=== PATIENT | female | born 1960 | race Caucasian/White ===

== ENCOUNTER 2022-02-24 14:46 | Outpatient (CLI) | payer OTHER, SELFPAY ==
--- NOTE | 2022-02-24 15:00 | CRLHL7_ITS ---
For Patients: As a result of the Century Cures Act, medical imaging exams and procedure reports are released immediately into your electronic medical record. You may view this report before your referring provider. If you have questions, please contact your health care provider. BILATERAL SCREENING MAMMOGRAM WITH COMPUTER-AIDED DETECTION AND TOMOSYNTHESIS TECHNIQUE: CC and MLO views were obtained. These mammographic images have been obtained using full-field digital technique. These mammographic images were interpreted with the benefit of computer-aided detection. Breast Tomosynthesis was used in this interpretation. COMPARISON FILM: 02/23/21, 02/05/20, 10/17/18. FINDINGS: There are scattered areas of fibroglandular density IMPRESSION: There is no radiographic evidence for malignancy. ASSESSMENT: BI-RADS Category 1: Negative RECOMMENDATION: Routine screening mammogram in 1 year. A lay language report of this examination will be provided to the patient. Julio Hendrix M.D. Diagnostic Radiologist [email or web address] Transcribed: 3:53 pm DW/Dictated by: Julio Hendrix MD @ 02/25/2022 8:35:00 AM (Electronically Signed)
== END 2022-02-24 14:47 | disposition home or self-care (01) ==
LOC: MAMMO 14:48
PROVIDERS: PCP Internal Medicine; Visit Provider Internal Medicine
DX: Z12.31 Encounter for screening mammogram for malignant neoplasm of breast (principal)
CPT/HCPCS: 77063; 77067

== ENCOUNTER 2022-06-03 11:38 | Outpatient (CLI) | payer OTHER, SELFPAY ==
--- OUTSIDE RECORDS SUMMARY | 2022-06-03 11:45 | XMS_ITS | Clinical Summary ---
:1960 Author Organization [employer] [facility] [employer] [place] [address] Care Team Providers Name Role Phone Amie Riddle MD Primary Care Provider Allergies No known active allergies Medications Medication Sig Dispensed Refills Start Date End Date Status glucosamine sulfate Take 1 tablet by 0 03/05/2011 Active (GLUCOSAMINE) 500 mg mouth 3 times TabIndications: daily. Tension headache citalopram (CELEXA) 40 Take 1 tablet by 60 tablet 11 01/30/2013 Active mg tablet mouth every morning. ARIPiprazole (ABILIFY) Take 1 tablet by 0 01/30/2013 Active 5 mg tablet mouth once daily. triamcinolone Apply topically to 45 g 0 01/30/2013 Active (ARISTOCORT; KENALOG) affected area(s) 2 0.1 % times daily. creamIndications: Eczema Active Problems Problem Noted Date Tension headache 03/05/2011 Other acne 02/05/2011 Unspecified adjustment reaction 02/09/2010 Major depression in complete remission 05/31/2008 Allergic rhinitis, cause unspecified 10/26/2006 Resolved Problems Problem Noted Date Resolved Date Depressive disorder, not elsewhere classified 10/26/2006 05/31/2008 Immunizations Name Administration Dates Next Due Td (Age >=7 Years) 07/17/2003 Family History Medical History Relation Name Comments Cancer-colon Maternal Grandmother Cancer-breast Mother Diagnosed age 75 Relation Name Status Comments Maternal Grandmother Mother Social History Tobacco Use Types Packs/Day Years Used Date Never Smoker Smokeless Tobacco: Never Used Tobacco Cessation: Counseling Given: Yes Alcohol Use Standard Drinks/Week Comments Yes 0 (1 standard drink = 0.6 oz pure occasi onal glass of wine; once per alcohol) month Sex Assigned at Date Recorded Not on file Obstetrics History Para Term AB IAB SAB Ectopic Multiple Living Live Births 4 4 4 4 Date Outcome GA Total Labor/2nd/3rd Weight Sex Delivery Anes PTL Ana A 1 A5 Name Clin Labor Term Term Term Term Last Filed Vital Signs Vital Sign Reading Time Taken Comments Blood Pressure 97/60 01/30/2013 1:39 PM CDT Pulse 69 01/30/2013 1:39 PM CDT Temperature 36.7 ??C (98.1 ??F) 01/30/2013 1:39 PM CDT Respiratory Rate 14 07/01/2010 3:50 PM SOLAR PHOTOVOLTAIC INSTALLER Oxygen Saturation - - Inhaled Oxygen Concentration - - Weight 61.2 kg (135 lb) 01/30/2013 1:39 PM CDT Height 166.4 cm (5' 5.5) 01/30/2013 1:39 PM CDT Body Mass Index 22.12 01/30/2013 1:39 PM CDT Plan of Treatment Health Maintenance Due Date Last Done Comments COVID-19 vaccine series (#1) 04/02/1962 Tdap 1972 Depression screening for age 12+ 1973 BMI (ht and wt on same day) for 10/01/1979 age 18+ Hepatitis C screening for age 0310/01/1979 18-79 Zoster (shingles) series for age 0310/01/2011 50+ (1 of 2) Mammogram for age 45-75 02/14/2013 02/15/2012, 02/12/2011, 01/15/2010, Additional history exists Tetanus booster 07/17/2013 07/17/2003 Lipids for age 45-75 01/15/2015 01/15/2010, 05/31/2008, 05/31/2008 Pap test for age 21-65 08/30/2020 08/30/2017, 08/30/2017, 04/07/2015, Additional history exists Colonoscopy through age 75 10/01/2021 10/02/2011 (Completed outside of [facility]) Influenza for age 50-64 03/18/2022 Results Not on filefrom Last 3 Months Care Teams 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
--- NOTE | 2022-06-03 14:04 | W.ANESCHARGE ---
Anesthesia Charges Start Date/Time Anesthesia Start Date: 06/03/22 Anesthesia Start Time: 13:00 Stop Date/Time Anesthesia Stop Date: 06/03/22 Anesthesia Stop Time: 13:42 Summary Emergency: No
--- NOTE | 2022-06-03 14:57 | W.ANESCHARGE ---
Anesthesia Charges Start Date/Time Anesthesia Start Date: 06/03/22 Anesthesia Start Time: 13:00 Stop Date/Time Anesthesia Stop Date: 06/03/22 Anesthesia Stop Time: 13:42 Summary Emergency: No
== END 2022-06-03 11:39 | disposition home or self-care (01) ==
LOC: OP CLINIC 11:39
PROVIDERS: PCP Internal Medicine; Visit Provider Surgery
DX: Z12.11 Encounter for screening for malignant neoplasm of colon (principal); K63.5 Polyp of colon; K57.30 Diverticulosis of large intestine without perforation or abscess without bleeding; Z80.0 Family history of malignant neoplasm of digestive organs; Z86.010 Personal history of colon polyps
CPT/HCPCS: 00811; 45385; 88305; J2704

== ENCOUNTER 2024-01-03 10:16 | Outpatient (CLI) | payer BC, SELFPAY ==
--- OUTSIDE RECORDS SUMMARY | 2024-01-03 10:20 | XMS_ITS | Clinical Summary ---
Author Organization [employer] [facility] Address [place], [place] [address] Care Team Providers Care Brass Molder Name Role Phone Amie Riddle MD Primary Care Provider [phone]- [phone] Allergies No known active allergies Medications Medication Sig Dispensed Refills Start Date End Date Status glucosamine sulfate (GLUCOSAMINE) 500 mg TabIndications:Tensi on headache Take 1 tablet by mouth 3 times daily. 0 03/05/2011 Active citalopram (CELEXA) 40 mg tablet Take 1 tablet by mouth every morning. 60 tablet 11 01/30/2013 Active ARIPiprazole (ABILIFY) 5 mg tablet Take 1 tablet by mouth once daily. 0 01/30/2013 Active triamcinolone (ARISTOCORT; KENALOG) 0.1 % creamIndications:Ecz susy Apply topically to affected area(s) 2 times daily. 45 g 0 01/30/2013 Active Active Problems Problem Noted Date Diagnosed Date Tension headache 03/05/2011 Other acne 02/05/2011 Unspecified adjustment reaction 02/09/2010 Major depression in complete remission 8 Allergic rhinitis, cause unspecified 10/26/2006 Resolved Problems Problem Noted Date Diagnosed Date Resolved Date Depressive disorder, not elsewhere classified 10/27/19 07 05/31/2008 Immunizations Name Administration Dates Next Due Td (Age >=7 Years) 07/17/2003 Family History Medical History Relation Name Comments Cancer-colon Maternal Grandmother Cancer-breast Mother Diagnosed age 75 Relation Name Status Comments Maternal Grandmother Mother Social History Tobacco Use Types Packs/Day Years Used Date Smoking Tobacco: Never Smokeless Tobacco: Never Tobacco Cessation:Counseling Given: Yes Alcohol Use Standard Drinks/Week Comments Yes 0 (1 standard drink = 0.6 oz pure alcohol) occasional glass of wine; once per month Sex and Gender Information Value Date Recorded Sex Assigned at Not on file Gender Identity Not on file Sexual Orientation Not on file Obstetrics History Para Term AB IAB SAB Ectopic Multiple Livin g Live Births 4 4 4 4 Date Outcome GA Total Labor Labor/2nd/3rd Weight Sex Type Anes PTL Ana A1 A5 Name Clin Term Term Term Term Last Filed Vital Signs Vital Sign Reading Time Taken Comments Blood Pressure 97/60 01/30/2013 1:39 PM CDT Pulse 69 01/30/2013 1:39 PM CDT Temperature 36.7 ??C (98.1 ??F) 01/30/2013 1:39 PM CD T Respiratory Rate 14 07/01/2010 3:50 PM SEED PELLETER Oxygen Saturation - - Inhaled Oxygen Concentration - - Weight 61.2 kg (135 lb) 01/30/2013 1:39 PM CDT Height 166.4 cm (5' 5.5) 01/30/2013 1:39 PM CDT Body Mass Index 22.12 01/30/2013 1:39 PM CDT Plan of Treatment Health Maintenance Due Date Last Done Comments Tdap 1972 Depression screening for age 12+ 1973 HIV for age 15-65 1976 BMI (ht and wt on same day) for age 18+ 10/01/1979 Hepatitis C screening for age 18-79 10/01/1979 Zoster (shingles) series for age 50+ (1 of 2) 10/01/2011 Mammogram for age 45-75 02/14/2013 02/15/20 12, 02/12/2011, 01/15/2010, Additional history exists Tetanus booster 07/17/2013 07/17/2003 Lipids for age 45-75 01/15/2015 01/15/2010, 05/31/2008, 05/31/2008 Pap test for age 21-65 08/30/2020 , 08/30/2017, 04/07/2015, Additional history exists Colonoscopy through age 75 10/01/202110/01 ([facility]) COVID-19 vaccine series (2022-24 season) 2023 Influenza for age 50-64 03/18/2024 Pneumococcal series for age 6-64 Aged Out No longer eligible based on patient's age to complete this topic Procedures Procedure Name Priority Date/Time Associated Diagnosis Comments CORRESPONDENCE COORDINATOR THIN PREP PAP SCREEN IMAGED Routine 08/30/2017 1:30 PM SEED PELLETER SCAN-MAMMOGRAPHY REPORT 02/15/2012 12:00 PM CDT LIPID PANEL Routine 01/15/2010 7:52 AM CDT Lipid screening from Last 3 Months or Most Recently Relevant to Health Maintenance Results * CORRESPONDENCE COORDINATOR THIN PREP PAP SCREEN IMAGED (08/30/2017 1:30 PM SEED PELLETER) Case Report Gynecologic Cytology Report ? Case: [id number] ? Authorizing Provider: ??Amie Riddle MD ?Collected: ? 08/30/2017 1330 ? First Screen: ?Tabitha Mojica ?Received: ?08/31/2017 1355 ? Specimen: ?CORRESPONDENCE COORDINATOR ThinPrep Vial Screening, Cervical/Vaginal ? 09/07/2017 8:34 AM [facility] [email or web address] LABORATORY-C ENTRAL LABORATORY INTERPRETATION/ RESULT NEGATIVE FOR INTRAEPITHELIAL LESION OR MALIGNANCY (NIL) (none) 09/07/2017 8:34 AM [facility] [employer]-C ENTRAL LABORATORY IMEN ADEQUACY Satisfactory for evaluation Endocervical cells cannot be evaluated due to severe atrophy 09/07/2017 8:34 AM SEED PELLETER [facility]OR[facility]-C ENTRAL LABORATORY HPV REQUEST HPV and PAP 09/07/2017 8:34 AM [facility] LABORATORY Date of LMP 09/07/2017 8:34 AM [facility] Comment:May 2012 Last Pap Date 04/07/2015 09/07/2017 8:34 AM [facility] Last Pap Result NIL 8 8:34 AM [facility] Menstrual Status 09/07/2017 8:34 AM [facility] Comment:Menopause Additional Information atophic cervix 09/07/2017 8:34 AM [facility] Automated Review Successful 09/07/2017 8:34 AM [facility] Comment:Specimen processed s uccessfully by automated automotive tire tester device, Enterra FeedPrep Imaging System, [employer] ANCILLARY TESTING CORRESPONDENCE COORDINATOR HPV Ordered, Please see separate report 09/07/2017 8:34 AM [facility] Note The pap test is a screening technique, not a diagnostic procedure. ??It is used primarily to screen for squamous cancers and precursor lesions. ??Published studies have shown that it is subject to both false negative and false positive results. ??The pap test should not be used as the sole means to diagnose or exclude pre-malignant and malignant lesions. Interpreted at [facility] (Central Lab, [facility], [facility], [facility], [facility], [facility], [facility]) 09/07/2017 8:34 AM [facility] Other (Cervical/Vagina l) 08/30/2017 1:30 PM SE[facility] PELLETER 08/31/2017 1:55 PM [facility] Amie Riddle MD PATHOLOGY/CYTOLOGY [facility] [address] [place] [address], * SCAN-MAMMOGRAPHY REPORT (02/15/2012 12:00 PM CDT) Anatomical Region Laterality Modality Other Narrative Transcriptions Scanner - 02/15/2012 12:00 PM CDT Scanner OTHER * LIPID (01/15/2010 7:52 AM CDT) CHOLESTEROL,TOTAL 142 110 - 199 mg/dL [facility] TRIGLYCERIDES 33 <150 mg/dL [facility] HDL CHOLESTEROL 70 >40 mg/dL [facility] CHOL/HDL RATIO 2.03 <4.51 [facility] LDL CHOLESTEROL 65 <131 mg/dL [facility] PATIENT STATUS Fasting [facility] Blood specimen (specimen) BLOOD SPECIMEN / Unknown 01/15/2010 7:52 AM CDT 01/15/2010 7:48 AM CDT Kelly Kraft MANAGER CORPORATE CHEMISTRY [facility] [address] [place] [address] from Last 3 Months or Most Recently Relevant to Health Maintenance Care Teams Brass Molder Relationship Specialty Start Date End Date Amie Riddle MD PCP - General Internal Medicine 01/30/13
== END 2024-01-03 10:17 | disposition home or self-care (01) ==
LOC: NFLDREF 10:18
PROVIDERS: PCP Internal Medicine; Visit Provider Internal Medicine
DX: M25.551 Pain in right hip (principal)
CPT/HCPCS: 86140

== ENCOUNTER 2024-02-16 13:06 | Outpatient (CLI) | payer BC, SELFPAY ==
--- OUTSIDE RECORDS SUMMARY | 2024-02-16 14:29 | XMS_ITS | Clinical Summary ---
Author Organization [employer] [facility] [employer] Address [place], [place] [address] Care Team Providers Care Jewelry Engraver Name Role Phone Amie Riddle MD Primary Care Provider +1- [phone] Allergies No known active allergies Medications Medication [...] T Respiratory Rate 14 07/01/2010 3:50 PM CITY ENGINEER Oxygen Saturation - - Inhaled Oxygen Concentration [...] through age 75 10/01/202110/01 ([facility] COVID-19 vaccine series (2022-24 season) 2023 Influenza for age 50-64 03/18/2024 Pneumococcal series for age 6-64 Aged Out No longer eligible based on patient's age to complete this topic Procedures Procedure Name Priority Date/Time Associated Diagnosis Comments MANAGER PRICING THIN PREP PAP SCREEN IMAGED Routine 08/30/2017 1:30 PM CITY ENGINEER SCAN-MAMMOGRAPHY REPORT 02/15/2012 12:00 PM CDT LIPID PANEL Routine 01/15/2010 7:52 AM CDT Lipid screening from Last 3 Months or Most Recently Relevant to Health Maintenance Results * MANAGER PRICING THIN PREP PAP SCREEN IMAGED (08/30/2017 1:30 PM CITY ENGINEER) Case Report Gynecologic Cytology Report ? Case: [id number] ? Authorizing Provider: ??Amie Riddle MD ?Collected: ? 08/30/2017 1330 ? First Screen: ?Tabitha Mojica ?Received: ?08/31/2017 1355 ? Specimen: ?MANAGER PRICING ThinPrep Vial Screening, Cervical/Vaginal ? 09/07/2017 8:34 AM [facility] [employer] LABORATORY-C ENTRAL LABORATORY INTERPRETATION/ RESULT NEGATIVE FOR INTRAEPITHELIAL LESION OR MALIGNANCY (NIL) (none) 09/07/2017 8:34 AM [facility] [employer]-C ENTRAL LABORATORY IMEN ADEQUACY Satisfactory for evaluation Endocervical cells cannot be evaluated due to severe atrophy 09/07/2017 8:34 AM CITY ENGINEER [facility] LABORATORY-C ENTRAL LABORATORY HPV REQUEST HPV and PAP 09/07/2017 8:34 AM [facility] LABORATORY Date of LMP 09/07/2017 8:34 AM [facility] Comment:May 2012 Last Pap Date 04/07/2015 09/07/2017 8:34 AM [facility] Last Pap Result NIL 8 8:34 AM [facility] Menstrual Status 09/07/2017 8:34 AM [facility] Comment:Menopause Additional Information atophic cervix 09/07/2017 8:34 AM [facility] Automated Review Successful 09/07/2017 8:34 AM [facility] Comment:Specimen processed s uccessfully by automated supervisor anodizing device, [employer] Hotel[employer] Imaging System, [employer] ANCILLARY TESTING MANAGER PRICING HPV Ordered, Please see separate report 09/07/2017 8:34 AM [facility] Note The pap test is a screening technique, not a diagnostic procedure. ??It is used primarily to screen for squamous cancers and precursor lesions. ??Published studies have shown that it is subject to both false negative and false positive results. ??The pap test should not be used as the sole means to diagnose or exclude pre-malignant and malignant lesions. Interpreted at [facility] (Central Lab, [facility], [facility], [facility], [facility], [facility]Note 2], [facility]) 09/07/2017 8:34 AM [facility] Other (Cervical/Vagina l) 08/30/2017 1:30 PM CITY ENGINEER 08/31/2017 1:55 PM CITY ENGINEER Amie Riddle MD PATHOLOGY/CYTOLOGY [facility] [address] [place] [address], * SCAN-MAMMOGRAPHY REPORT (02/15/2012 12:00 PM CDT) Anatomical Region Laterality Modality Other Narrative Transcriptions Scanner - 02/15/2012 12:00 PM CDT Scanner OTHER * LIPID (01/15/2010 7:52 AM CDT) CHOLESTEROL,TOTAL 142 110 - 199 mg/dL [facility] TRIGLYCERIDES 33 <150 mg/dL [facility] HDL CHOLESTEROL 70 >40 mg/dL [facility] CHOL/HDL RATIO 2.[address] [facility] LDL CHOLESTEROL 65 <131 mg/dL [facility] PATIENT STATUS Fasting [facility] Blood specimen (specimen) BLOOD SPECIMEN / Unknown 01/15/2010 7:52 AM CDT 01/15/2010 7:48 AM CDT Kelly Kraft COMPENSATION DIRECTOR CHEMISTRY [facility] [address] [place] [address] from Last 3 Months or Most Recently Relevant to Health Maintenance Care Teams Jewelry Engraver Relationship Specialty Start Date End Date Amie Riddle MD PCP - General Internal Medicine 01/30/13
== END 2024-02-16 13:07 | disposition home or self-care (01) ==
LOC: NFLDREF 14:27
PROVIDERS: PCP Internal Medicine; Visit Provider Internal Medicine
DX: Z01.818 Encounter for other preprocedural examination (principal)
CPT/HCPCS: 80053

== ENCOUNTER 2024-02-24 13:27 | Inpatient (IN) | payer BC, SELFPAY ==
[2024-02-23] VITALS (23 sets, daily range): BP systolic 87–124; BP diastolic 42–80; PULSE 46–97; RESP 12–18; TEMP 35.4–36.9; O2SAT 96–100; BMI 23.6
--- OUTSIDE RECORDS SUMMARY | 2024-02-23 10:33 | XMS_ITS | Clinical Summary ---
Author Organization [facility] Address [place], [place] [address] Care Team Providers Care Flower Stripper Name Role Phone Amie Riddle MD Primary Care Provider [phone] Allergies No known active allergies Medications Medication [...] T Respiratory Rate 14 07/01/2010 3:50 PM MANAGEMENT ARCHITECT Oxygen Saturation - - Inhaled Oxygen Concentration [...] through age 75 10/01/202110/01 (Completed outside of [facility]) COVID-19 vaccine series (2022-24 season) 2023 Influenza for age 50-64 03/18/2024 Pneumococcal series for age 6-64 Aged Out No longer eligible based on patient's age to complete this topic Procedures Procedure Name Priority Date/Time Associated Diagnosis Comments COLOR PASTE MIXER THIN PREP PAP SCREEN IMAGED Routine 08/30/2017 1:30 PM MANAGEMENT ARCHITECT SCAN-MAMMOGRAPHY REPORT 02/15/2012 12:00 PM CDT LIPID PANEL Routine 01/15/2010 7:52 AM CDT Lipid screening from Last 3 Months or Most Recently Relevant to Health Maintenance Results * COLOR PASTE MIXER THIN PREP PAP SCREEN IMAGED (08/30/2017 1:30 PM MANAGEMENT ARCHITECT) Case Report Gynecologic Cytology Report ? Case: [id number] ? Authorizing Provider: ??Amie Riddle MD ?Collected: ? 08/30/2017 1330 ? First Screen: ?Tabitha Mojica ?Received: ?08/31/2017 1355 ? Specimen: ?COLOR PASTE MIXER ThinPrep Vial Screening, Cervical/Vaginal ? 09/07/2017 8:34 AM [facility]-C ENTRAL LABORATORY INTERPRETATION/ RESULT NEGATIVE FOR INTRAEPITHELIAL LESION OR MALIGNANCY (NIL) (none) 09/07/2017 8:34 AM [facility] [employer]-C ENTRAL LABORATORY IMEN ADEQUACY Satisfactory for evaluation Endocervical cells cannot be evaluated due to severe atrophy 09/07/2017 8:34 AM MANAGEMENT ARCHITECT [facility]-C ENTRAL LABORATORY HPV REQUEST HPV and PAP 09/07/2017 8:34 AM [facility] ENTRIL LAB[facility] Date of LMP 09/07/2017 8:34 AM [facility] Comment:May 2012 Last Pap Date 04/07/2015 09/07/2017 8:34 AM [facility] Last Pap Result NIL 8 8:34 AM [facility] Menstrual Status 09/07/2017 8:34 AM [facility] Comment:Menopause Additional Information atophic cervix 09/07/2017 8:34 AM [facility] Automated Review Successful 09/07/2017 8:34 AM [facility] Comment:Specimen processed s uccessfully by automated spun paste machine operator device, DeepFlexPrep Imaging System, [employer] ANCILLARY TESTING COLOR PASTE MIXER HPV Ordered, Please see separate report 09/07/2017 8:34 AM [facility] Note The pap test is a screening technique, not a diagnostic procedure. ??It is used primarily to screen for squamous cancers and precursor lesions. ??Published studies have shown that it is subject to both false negative and false positive results. ??The pap test should not be used as the sole means to diagnose or exclude pre-malignant and malignant lesions. Interpreted at [facility] ([facility], [facility], [facility], [facility], [facility], [facility], [facility]) 09/07/2017 8:34 AM [facility] Other (Cervical/Vagina l) 08/30/2017 1:30 PM MANAGEMENT ARCHITECT 08/31/2017 1:55 PM MANAGEMENT ARCHITECT Amie Riddle MD PATHOLOGY/CYTOLOGY [facility] [address] [place] [address], * SCAN-MAMMOGRAPHY REPORT (02/15/2012 12:00 PM CDT) Anatomical Region Laterality Modality Other Narrative Transcriptions Scanner - 02/15/2012 12:00 PM CDT Scanner OTHER * LIPID (01/15/2010 7:52 AM CDT) CHOLESTEROL,TOTAL 142 110 - 199 mg/dL [facility] TRIGLYCERIDES 33 <150 mg/dL [facility] HDL CHOLESTEROL 70 >40 mg/dL [facility] CHOL/HDL RATIO 2.03 <4.51 [facility] LDL CHOLESTEROL 65 <131 mg/dL [facility] PATIENT STATUS Fasting [facility] Blood specimen (specimen) BLOOD SPECIMEN / Unknown 01/15/2010 7:52 AM CDT 01/15/2010 7:48 AM CDT Kelly Kraft ELECTRON BEAM OPERATOR CHEMISTRY [facility] [address] [place] [address] from Last 3 Months or Most Recently Relevant to Health Maintenance Care Teams Flower Stripper Relationship Specialty Start Date End Date Amie Riddle MD PCP - General Internal Medicine 01/30/13
[2024-02-23] MEDS: OXYCODONE (CR) 10 MG TAB.ER.12H PO (11:29)
[2024-02-23] MEDS: CELECOXIB 200 MG CAPSULE PO (11:29)
[2024-02-23] MEDS: ACETAMINOPHEN 500 MG TABLET 1000 MG PO ×3 (11:29→23:37)
[2024-02-23] MEDS: LACTATED RINGERS 1000 ML 1,000 ML 100 ML IV ×2 (11:35→13:46)
[2024-02-23] MEDS: SODIUM CHLORIDE 0.9 % (FLUSH) 10 ML SYRINGE IVF (11:35)
--- NOTE | 2024-02-23 11:44 | SUR.PREOP ---
TIME?OUT:?1144 PT/RN/MDA?VERIFICATION?OF?SURGICAL?SITE,?PROCEDURE,?AND?CONSENT OBTAINED?PRIOR?TO?INVASIVE?PROCEDURE.
--- NOTE | 2024-02-23 11:45 | CRLHL7_ITS ---
For Patients: As a result of the Cures Act, medical imaging exams and procedure reports are released immediately into your electronic medical record. You may view this report before your referring provider. If you have questions, please contact your health care provider. Indication: Hip replacement surgery Technique: AP hip fluoroscopic images. Fluoroscopy time 69.4 seconds. Findings/Impression: Hardware from a right total hip arthroplasty is in satisfactory position. Dictated by Julio Hendrix MD @ 02/24/2024 5:36:31 AM (Electronically Signed)
--- NOTE | 2024-02-23 11:56 | P.NB_ITS ---
Nerve Block Nerve Block Time Seen by Provider: 11:50 Date Seen: 02/23/24 Type of block requested by surgeon for post-operative analgesia: BETTE/LFCN Side: right Time out performed: Yes Verification of patient name: Yes Verification of date of : Yes Site marking: site marked Name of person performing procedure: Guanaco Continuous monitoring Was continuous monitoring of O2 sat, B/P, phototypesetting equipment monitor, recorded every 15 minutes?: Yes Procedure Checklist: sterile prep, needles and gloves Ultrasound guided. Images saved: Yes Medications given in 5ml increments after negative aspiration: Ropivicaine %: 0.5 mL: 30 Needle gauge: 20 Decadron (mg): 10 Precedex (mcg): 25 Patient tolerated procedure well: Yes Additional comments: Needle noted below psoas tendon needle noted adjacent to LFCN Block Charges Block Charge (with Pro Fee): Other Periph Nerve Block Use of Ultrasound Machine for Block: Yes- US Guidance/pain block
--- NOTE | 2024-02-23 11:56 | W.ANESCHARGE ---
Anesthesia Charges Start Date/Time Anesthesia Start Date: 02/23/24 Anesthesia Start Time: 11:53 Stop Date/Time Anesthesia Stop Date: 02/23/24 Anesthesia Stop Time: 14:10
[2024-02-23] MEDS: CEFAZOLIN 2 GM INJ IVP (12:11)
[2024-02-23] MEDS: TRANEXAMIC ACID 100 MG/ML INJ 1000 MG IV (12:16)
--- NOTE | 2024-02-23 13:34 | CRLHL7_ITS ---
For Patients: As a result of the Century Cures Act, medical imaging exams and procedure reports are released immediately into your electronic medical record. You may view this report before your referring provider. If you have questions, please contact your health care provider. Indication: Postop Technique: AP hip centered pelvis and lateral view right Findings/Impression: Hardware from a right total hip arthroplasty is in satisfactory position. Bone alignment is normal. No sign of acute fracture. Postop changes are within normal limits. Bridging osteophyte formation across the superior symphysis pubis. Dictated by Julio Hendrix MD @ 02/24/2024 5:43:53 AM (Electronically Signed)
--- NOTE | 2024-02-23 13:36 | P.ORPRC_ITS ---
Procedure Note Date of procedure: 02/23/24 Procedure: PREOPERATIVE DIAGNOSIS: Right hip osteoarthritis POSTOPERATIVE DIAGNOSIS: Right hip osteoarthritis NAME OF OPERATION: Right total hip arthroplasty SURGEON: Robe Polo MD DOUBLE END TENON OPERATOR: Brandie Johnson PA-C, CHUCHO Smith IMPLANTS: 1. J[employer]J Tionesta # 52 sector ingrowth cup 2. 36 x 52 +4 neutral polyethylene 3. Actis # 8 standard collared ingrowth stem 4. 36 + 1.5 ceramic femoral head ANESTHESIA: Spinal ESTIMATED BLOOD LOSS: 700 cc COMPLICATIONS: None SPECIMENS: None DRAINS: None PREOPERATIVE ANTIBIOTICS: Ancef 2 grams INDICATIONS: The patient is a 63-year-old with a longstanding history of s evere, unrelenting right hip pain secondary to end-stage right hip osteoarthritis. Despite appropriate nonoperative management, including activity modification, use of an assist device, anti-inflammatories, [id number] pain medication, physical therapy and injections, they continue to have pain and disability. Operative intervention was offered. The risks, benefits and expected outcomes were discussed in detail. These included but were not limited to: Infection, bleeding, injury to blood vessel or nerve, venous thromboembolism. All questions were answered to their satisfaction. Use of an production administrative assistant was necessary throughout the case for patient positioning and safety, soft tissue retraction and closure. PROCEDURE: Spinal anesthesia was administered. The patient was placed supine on the [place] table. The production administrative assistant made sure the patient was properly positioned. The right hip was prepped and draped in the usual sterile fashion. The image intensifier was brought in for a perfect AP pelvis and a perfect double tear drop AP view of each hip which were used for intraoperative templating with our fluoroscopic guide. An oblique incision was made 3 cm distal and 3 cm lateral to the anterior superior iliac spine. The production administrative assistant retracted the soft tissues to protect them. Subcutaneous dissection was taken with electrocautery to the superficial fascia. The fascia was divided in line with the incision. Blunt dissection was carried medially to the tensor fascia tu and sartorius interval. Deep dissection was carried with electrocautery. The circumflex vessels were cauterized and divided. The capsule was exposed and then divided in a T- fashion, tagged with #1 Ethibond sutures. Retractors were placed in the joint, held by the production administrative assistant. The corkscrew was placed in the femoral head. The neck cut was made in the subcapital region. We made a second neck cut more distal. The napkin ring of bone was removed. The femoral head was removed intact. Acetabular retractors were placed, held by the production administrative assistant. The labrum was sharply debrided. The capsule was released. The 43 mm reamer was used to the true medial wall. We then enlarged in 2 mm increments using the image intensifier for our reamer placement. We impacted the cup which had excellent purchase. We placed the polyethylene. Attention was then turned to the proximal femur. The limb was placed in 140 degrees of external rotation, maximum extension and adduction. A significant amount of time was spent releasing the capsule to allow us to deliver the femur into the wound and complete the femoral side safely. Retractors were held by the production administrative assistant throughout the femoral preparation. The box hinge and lock attacher and canal finder were used. Broaches were used to a stable size. The calcar reamer was used. Trial components were placed. The hip was reduced and was found to be stable with appropriate soft tissue tension. Length and offset had been nicely restored using the image intensifier and our fluoroscopic guide. Trial components were removed. The stem was impacted. We placed the femoral head. Again, the hip was reduced and was found to be stable with appropriate soft tissue tension. Length and offset had been nicely restored. The production administrative assistant did a three minute dilute Betadine solution soak. The production administrative assistant irrigated the wound with 3 liters of normal saline via pulse lavage. The production administrative assistant repaired the anterior capsule with a #1 Vicryl and our previously placed Ethibond sutures. The production administrative assistant closed the fascia over the tensor fascia tu with a #1 PDO Stratafix, subcutaneous tissues with 2-0 Vicryl, skin with a running 3-0 Stratafix and glue. A dry dressing was applied by the production administrative assistant. Sponge and needle counts were correct x 2. The patient tolerated the procedure well; there were no apparent complications. They were awakened and extubated in the operating room, sent to the Post-Anesthesia Care Unit in satisfactory condition. PLAN: 1. The patient will be mobilized with physical therapy, weight-bearing as tolerates 2. Xarelto x 5 days then aspirin x 30 days will be used for DVT prophylaxis 3. The patient will be discharged once medically appropriate
--- NOTE | 2024-02-23 14:13 | W.ANESCHARGE ---
Anesthesia Charges Start Date/Time Anesthesia Start Date: 02/23/24 Anesthesia Start Time: 11:53 Stop Date/Time Anesthesia Stop Date: 02/23/24 Anesthesia Stop Time: 14:10
[2024-02-23] MEDS: ONDANSETRON 2 MG/ML inj 4 MG IVP ×3 (14:32→20:57)
--- NOTE | 2024-02-23 14:34 | SUR.PHASEI ---
xray here for ap/lat right hip
[2024-02-23] MEDS: HYDROmorphone 0.5 mg/0.5 ml inj IVP ×2 (15:14→16:50)
--- NOTE | 2024-02-23 15:36 | PM.IMCN1 ---
Date of Consult Patient: [facility] Patient Consult date: 02/23/24 Requesting Physician: Orthopedics Primary Care Provider: Amie Riddle MD Consult Narrative Narrative: Dulce Randle is a 63 year old female admitted for right total hip arthroplasty. Procedure was performed by Dr. Polo. There were no operative complications. Estimated blood loss 700 mL. He has requested medical consultation for management of perioperative medical problems. Patient reports she is doing well at this time. She is a little bit of nausea and some hip pain. Her spinal anesthesia is just beginning to wear off now. Preoperatively she did well. No significant perioperative concerns identified during her preoperative physical. She has had no recent illness or injury. Review of Systems Narrative: No recent illness or injury. No current medical concerns. [facility] Medical History History of major depression ?Z86.59 - Personal history of other mental and behavioral disorders (ICD-10) Surgical History (Updated 02/23/24 @ 15:42 by Usman Velazquez MD) History of total right hip arthroplasty ?Z96.641 - Presence of right artificial hip joint (ICD-10) History of menorrhagia (02/10/12) ?Z87.42 - Personal history of other diseases of the female genital tract (ICD-10) History of colonoscopy ?Z98.890 - Other specified postprocedural states (ICD-10) Family History Other Colon cancer Social History (Updated 02/23/24 @ 15:41 by Usman Velazquez MD) Narrative: She lives with her . She has 2 steps to get into her house and then lives on 1 level. She does not smoke. She occasionally drinks alcohol. What is your current living situation?: I presently have a place to live Problems where you live: no known problems In the past 12 months, utilities in danger of being shut off: no In past 12 months, lack of transportation kept you from medical appts, meetings, work, or getting things needed for daily living: no In the past 12 mos, have been you worried that your food would run out before you had money to buy more?: never true In the past 12 mos, the food you bought just didn't last and you didn't have money to buy more?: never true Smoking Status: Never smoker How often do you have a drink containing alcohol: monthly or less AUDIT-C Alcohol total score: 1 Non-prescribed substance use: denies use Caffeine: Yes How often does anyone, including family, friends and others, physically hurt you: never How often does anyone, including family, friends and others, insult or talk down to you: never How often does anyone, including family, friends and others, threaten you with harm: never How often does anyone, including family, friends and others, scream or curse at you: never Little interest or pleasure in doing things: not at all Feeling down, depressed, or hopeless: not at all Meds Home Medications and Allergies Home Medications ?Medication ?Instructions ?Recorded ?Confirmed ?Type cholecalciferol (vitamin D3) 25 25 mcg PO DAILY 01/03/24 02/23/24 History mcg (1,000 unit) capsule coenzyme Q10 300 mg capsule (Co 300 mg PO DAILY 01/03/24 02/23/24 History Q-10) omega-3 650 mg-dha 400 mg-epa 200 1 cap PO DAILY 01/03/24 02/23/24 History mg-fish oil-vit D3 300 unit capsule magnesium oxide 300 mg PO DAILY 01/12/24 02/23/24 History Allergies Allergy/AdvReac Type Severity Reaction Status Date / Time No Known Drug Allergies Allergy Verified 02/16/24 14:04 Exam Narrative: Exam Narrative: She is alert and appears in no distress. Oropharynx is normal. Neck is supple without mass or adenopathy. Respirations are clear to auscultation. Cardiovascular: S1, S2, regular rate and rhythm. No murmur gallop or rub. Abdomen: Bowel sounds active. Abdomen is soft without tenderness or mass. Right Hip without marked swelling. No erythema or drainage on the dressing. She has diminished sensation in her feet. Normal motion in her feet and ankles. Intact pedal pulses. No edema Const: Vital Signs, click to edit/add: Vital Signs - 24 hr 02/23/24 11:20 02/23/24 11:46 02/23/24 11:50 Temperature 98.4 F Pulse Rate 73 67 65 Respiratory Rate 16 16 14 Blood Pressure 124/79 118/73 116/71 Pulse Oximetry 99 98 96 Oxygen Delivery Me thod Room Air Nasal Cannula Nasal Cannula Oxygen Flow Rate 3 3 02/23/24 13:35 02/23/24 14:10 02/23/24 14:15 Temperature 97.4 F L Pulse Rate 58 L 46 L 52 L Respiratory Rate 16 12 12 Blood Pressure 87/59 L 88/47 L 92/58 L Pulse Oximetry 97 96 96 Oxygen Delivery Me thod Room Air Room Air Room Air Oxygen Flow Rate 02/23/24 14:20 02/23/24 14:25 02/23/24 14:30 Temperature Pulse Rate 55 L 58 L 53 L Respiratory Rate 12 16 16 Blood Pressure 92/58 L 90/61 94/67 Pulse Oximetry 96 96 96 Oxygen Delivery Me thod Room Air Room Air Room Air Oxygen Flow Rate 02/23/24 14:40 02/23/24 14:45 Temperature Pulse Rate 60 55 L Respiratory Rate 16 16 Blood Pressure 94/64 90/58 L Pulse Oximetry 97 97 Oxygen Delivery Me thod Room Air Room Air Oxygen Flow Rate Documenting provider has reviewed patient's vital signs: yes Assessment and Plan Assessment and plan (1) History of total right hip arthroplasty: Problem comment: 02/23/2024. Dr. Polo. No complications. Status: Acute Plan Patient is admitted to the hospital for postoperative care for her hip arthroplasty. Management including pain control, management of nausea and therapy. Anticipate discharge to home with her tomorrow if no complications. Total Time Spent Total Time Spent: 30 minutes
[2024-02-23] MEDS: hydrOXYzine pamoate 25 MG CAPSULE PO (18:17)
[2024-02-23] MEDS: LACTATED RINGERS 1000 ML 1,000 ML 75 ML IV (18:41)
--- NOTE | 2024-02-23 19:18 | PC.NURSE ---
Nursing Care Hours: [id number] Pt this shift arrived from PACU alert and oriented. Nausea and pain treated per eMAR and cold wash cloths. Aromatherapy started. BP intermittently soft, see VS. IV fluids running. Pt face pale and pt c/o lightheaded and nausea with movements. Slowly advanced from bed to dangling on bed. Stood for a moment to adjust bed sheets and tolerated well. No void this shift. Bandage CDI. IS used, 1500ml reached.
[2024-02-23] MEDS: SENNOSIDES 1 TAB TABLET 2 TAB PO (20:57)
[2024-02-23] MEDS: OXYCODONE 5 MG TABLET PO (22:18)
[2024-02-23] MEDS: MELATONIN 3 MG TABLET PO (22:18)
--- NOTE | 2024-02-23 22:33 | PC.NURSE ---
End of shift note [id number]: Pt alert & oriented x 4 and able to make needs known. Dressing to R hip C/D/I and CMS to RLE intact. Bilateral plexi pulses worn. B/Ps trending softer post-operatively (101/60 and 97/57 this shift) likely due to blood loss during surgery. She remains on 75 mL/hr and is drinking renay nico. Pt has eaten 2 pieces of toast after PRN Zofran given and reports nausea/dizziness improving. Bedside commode used for first toileting episode due to pt c/o nausea and dizziness. PRN Oxycodone given for 5/10 pain to R hip with rest encouraged, repositioning performed and ice provided. Pt transferred from bed to commode well with assist of 1. Pt afebrile with no c/o CP. She voided 500 mL this evening. No vomiting noted or reported this evening. PRN Melatonin administered as pt reports insomnia at home.
[2024-02-24] MEDS: OXYCODONE 5 MG TABLET PO ×4 (01:49→15:37)
[2024-02-24 03:00] VITALS: BP 77/41; PULSE 75; RESP 14; TEMP 36.4; O2SAT 95
[2024-02-24] MEDS: LACTATED RINGERS 500 ML IV (04:15)
[2024-02-24 05:12] LABS: Basophils Absolute Auto 0.01 K/uL (0.00-0.30); Basophils Percent Auto 0.1 % (0.0-3.0); Hematocrit 29.8 % (33.0-51.0); Hemoglobin* 9.7 gm/dL (12.0-16.0); Immature Granulocytes Abs Auto 0.01 K/uL (0.00-0.30); Immature Granulocytes Pct Auto 0.1 %; Lymphocytes Percent Auto 15.2 % (20-44); Mean Corpuscular HGB Conc 33 gm/dL (32-36); Mean Corpuscular Hemoglobin 31 pg (26-34); Mean Corpuscular Volume 94 fL (80-100); Monocytes Percent Auto 11.6 % (0.0-11.0); Platelet Count* 164 K/uL (140-440); RDW Coefficient of Variation % 14.9 % (11.5-15.5); Red Blood Count 3.17 m/uL (4.00-5.20); White Blood Count* 7.77 K/uL (4.50-11.00)
[2024-02-24 05:13] LABS: Slide Review Reflex No
[2024-02-24 05:24] LABS: Potassium* 3.7 mmol/L (3.6-5.1); Sodium* 134 mmol/L (135-149)
[2024-02-24 05:27] LABS: Blood Urea Nitrogen* 27 mg/dL (7-30); Creatinine* 0.5 mg/dL (0.5-1.5); Est. Creatinine Clearance* 50.37; Estimated Glomerular Filt Rate 106 ml/min
[2024-02-24] MEDS: ACETAMINOPHEN 500 MG TABLET 1000 MG PO ×3 (05:41→18:24)
--- NOTE | 2024-02-24 06:20 | PC.NURSE ---
End of shift [id number]: Pleasant and cooperative with cares. Pain to right hip well managed with current regime. Dressing clean, dry and intact. CMS intact to RLE. At 0345 attempted to transfer to toilet, patient reported dizziness and lightheadedness upon standing. Patient sat back onto bedside, BP checked 65/30 at that time, hand sign writer and Awa RN assisted patient to lay down, foot of bed elevated . BP rechecked and 77/41. Call placed to [facility] and Dr. Lawson Melendrez updated, new order for 500cc bolus of LR. Patient recieved bolus over 30 minutes, lightheadedness and dizziness resolved. BP post bolus 84/45, patient asymptomatic. Post surgical patient BP's running 90's/50's. Call to lab and request for morning lab draw early, labs completed. Patient able to transfer onto bedside commode with min assist x 2 and pivot transfer with gait belt. Denied any dizziness or lightheadedness with toileting. Instructed patient to notify staff of any new onset of symptoms.
[2024-02-24 07:00] VITALS: BP 100/58; PULSE 70; RESP 16; TEMP 36.6; O2SAT 98
[2024-02-24] MEDS: SENNOSIDES 1 TAB TABLET 2 TAB PO ×2 (08:32→20:24)
[2024-02-24] MEDS: RIVAROXABAN 10 MG TABLET PO (08:33)
--- NOTE | 2024-02-24 09:43 | P.ORPN_ITS ---
Subjective Subjective Time Seen by Provider: 07:00 Date Seen: 02/24/24 Principal diagnosis: Day 1 s/p right WENDY, Dr. Polo Interval history: Dulce is resting comfortably in her bed. C/o mild-moderate right hip pain that is well managed with scheduled pain medications and icing. Denies: chest pain, SOB, fever, chills, numbness/tingling distally, lightheadedness, dizziness. At 3:30am this morning, patient became lightheaded with ambulation. Her BP was 65/30. Patient received a 500 mL bolus of LR following which her lightheadedness improved. At 5am, patient sat upright to use the commode, denies lightheadedness/dizziness while doing so. She has not yet ambulated since receiving this fluid bolus. Blood pressure has improved; most recent BP at 7am was 100/58. Ortho Exam Narrative Exam Narrative: Patient is resting comfortably in her bed. No acute distress. Converses with nonlabored breathing. Incision/Dressing: Dressing appears clean and dry. No drainage present. Mepilex intact. Right hip appears moderately swollen but supple with no obvious erythema, fluctuance or excessive warmth. Early signs of ecchymosis present mid-bandage. No erythematous streaking. Warmth around the wound is appropriate. Ice is being utilized as needed. CMS: Intact distally with 2+ Dorsalis pedis and Posterior Tibial pulses. 5/5 motor strength dorsal and plantar flexion. Confirmed sensation distally. Calf: Bilateral calves are supple, with no swelling, pain, tenderness, erythema, discoloration or coolness to the touch. Constitutional: Patient is alert and oriented x3. Patient is in no acute distress and converses without labored breathing. Patient is able to make decisions and demonstrates good insight. Patient is pleasant and cooperative. Affect is full range and appropriate for the circumstances. Const Vital Signs, click to edit/add: Vital Signs - 24 hr 02/23/24 11:20 02/23/24 11:46 02/23/24 11:50 Temperature 98.4 F Pulse Rate 73 67 65 Pulse Rate [Left Pulse Oximeter] Respiratory Rate 16 16 14 Blood Pressure 124/79 118/73 116/71 Blood Pressure [Right Arm] Pulse Oximetry 99 98 96 Oxygen Delivery Method Room Air Nasal Cannula Nasal Cannula Oxygen Flow Rate 3 3 02/23/24 13:35 02/23/24 14:10 02/23/24 14:15 Temperature 97.4 F L Pulse Rate 58 L 46 L 52 L Pulse Rate [Left Pulse Oximeter] Respiratory Rate 16 12 12 Blood Pressure 87/59 L 88/47 L 92/58 L Blood Pressure [Right Arm] Pulse Oximetry 97 96 96 Oxygen Delivery Method Room Air Room Air Room Air Oxygen Flow Rate 02/23/24 14:20 02/23/24 14:25 02/23/24 14:30 Temperature Pulse Rate 55 L 58 L 53 L Pulse Rate [Left Pulse Oximeter] Respiratory Rate 12 16 16 Blood Pressure 92/58 L 90/61 94/67 Blood Pressure [Right Arm] Pulse Oximetry 96 96 96 Oxygen Delivery Method Room Air Room Air Room Air Oxygen Flow Rate 02/23/24 14:40 02/23/24 14:45 02/23/24 14:53 Temperature 96.1 F L Pulse Rate 60 55 L 54 L Pulse Rate [Left Pulse Oximeter] Respiratory Rate 16 16 16 Blood Pressure 94/64 90/58 L 91/58 L Blood Pressure [Right Arm] Pulse Oximetry 97 97 97 Oxygen Delivery Method Room Air Room Air Room Air Oxygen Flow Rate 02/23/24 15:00 02/23/24 15:00 02/23/24 15:15 Temperature 95.7 F L Pulse Rate 50 L 51 L Pulse Rate [Left Pulse Oximeter] Respiratory Rate 16 16 16 Blood Pressure 107/58 L 109/67 Blood Pressure [Right Arm] Pulse Oximetry 98 98 97 Oxygen Delivery Method Room Air Room Air Room Air Oxygen Flow Rate 02/23/24 15:30 02/23/24 15:45 02/23/24 16:00 Temperature 95.9 F L Pulse Rate 53 L 51 L 49 L Pulse Rate [Left Pulse Oximeter] Respiratory Rate 16 16 Blood Pressure 112/80 104/64 93/58 L Blood Pressure [Right Arm] Pulse Oximetry 98 98 98 Oxygen Delivery Method Room Air Room Air Room Air Oxygen Flow Rate 02/23/24 16:30 02/23/24 17:30 02/23/24 18:30 Temperature 96.5 F L 97.5 F L 97.2 F L Pulse Rate 58 L 58 L 60 Pulse Rate [Left Pulse Oximeter] Respiratory Rate 16 18 Blood Pressure 91/61 116/67 118/74 Blood Pressure [Right Arm] Pulse Oximetry 98 97 100 Oxygen Delivery Method Room Air Room Air Room Air Oxygen Flow Rate 02/23/24 19:30 02/23/24 20:30 02/23/24 23:00 Temperature 97.9 F 98.2 F Pulse Rate 60 61 Pulse Rate [Left Pulse Oximeter] Respiratory Rate 16 16 16 Blood Pressure 101/60 97/57 L Blood Pressure [Right Arm] Pulse Oximetry 100 100 Oxygen Delivery Method Room Air Room Air Oxygen Flow Rate 02/23/24 23:00 02/23/24 23:00 02/24/24 03:00 Temperature 98.2 F 97.5 F L Pulse Rate Pulse Rate [Left Pulse Oximeter] 97 75 Respiratory Rate 18 18 14 Blood Pressure Blood Pressure [Right Arm] 93/42 L 77/41 L Pulse Oximetry 97 97 95 Oxygen Delivery Method Room Air Room Air Room Air Oxygen Flow Rate 02/24/24 07:00 02/24/24 07:00 02/24/24 07:00 Temperature 97.9 F Pulse Rate Pulse Rate [Left Pulse Oximeter] 70 70 Respiratory Rate 16 16 16 Blood Pressure Blood Pressure [Right Arm] 100/58 L Pulse Oximetry 98 98 Oxygen Delivery Method Room Air Room Air Oxygen Flow Rate Assessment and Plan Assessment and plan (1) History of total right hip arthroplasty: Problem details: DOS: 02/23/2024, Dr. Polo. Status: Acute Assessment and Plan: - Right WENDY complicated by postoperative anemia due to 700 mL blood loss. I conversed with the Hospitalist regarding this. Dulce's hgb this AM was 9.7. Pre- op hgb was 13.4. Patient was asymptomatic during our visit, but also sedentary/supine in bed. Upon ambulation, if patient becomes symptomatic she may benefit from a blood transfusion. I recommend a repeat CBC later this evening and/or tomorrow morning if the patient stays an additional night. - Complete 23 hour perioperative antibiotics. - PT/OT consults for education and assistance. Outpatient PT already scheduled to begin next week. - Weight bear as tolerated with a walker for assistance. - Prescribed analgesics as needed. Patient is content with current narcotic medications. Minimize narcotic pain medication use; wean off and discontinue as soon as possible. - DVT prophylaxis: Xarelto x 5 days followed by aspirin 81 mg BID x 30 days. Also, frequent ambulation and ankle pumps when sedentary. - Social consult for discharge planning. - Discharge timing unclear at this point in time. Will continue to monitor postoperative anemia. - Return to clinic in 1 week for a wound check. Mepilex dressing will be removed at this appointment. Remove sooner if dressing becomes saturated. - Return to clinic in [address] Polo. - Phone Orthopedics with any questions or concerns. [phone]
[2024-02-24 11:00] VITALS: BP 93/48; PULSE 72; RESP 16; TEMP 36.4; O2SAT 99
[2024-02-24 11:00] LABS: Hemoglobin* 9.8 gm/dL (12.0-16.0)
[2024-02-24] MEDS: LACTATED RINGERS 1000 ML 1,000 ML 75 ML IV (12:37)
--- NOTE | 2024-02-24 13:54 | W.PM.CROSSCO ---
Subjective Subjective Principal diagnosis: Day 1 s/p right WENDY, Dr. Polo Interval history: Patient discharge cancelled today reassessed By PT and passed PT this afternoon SBP in 90s repeat hgb stable patient does not feel comfortable discharging Objective Objective Data Details: Gen: no acute distress HEENT: NCAT EOMI mmm Neck: Supple CV: RRR normal s1 s2 Lungs: CTAB Abd: Soft,nt, nd Neuro: Alert, oriented, CN grossly intact; nonfocal screening?exam Psych: appropriate affect MSK: age appropriate muscle mass Skin; Warm, dry no rash on face Assessment and Plan Assessment and plan (1) History of total right hip arthroplasty: Problem comment: DOS: 02/23/2024, Dr. Polo. pain control per ortho; on xarelto for DVT ppx. Repeat Hgb stable at 9.8 Status: Acute (2) Anxiety: Problem comment: Was sertraline for greater than ten years. In 2014 she weaned off it on her own and started Ronak's wort, sertraline restarted 06/08, weaned off sometime in 2022 Status: Acute (3) ABLA (acute blood loss anemia): Problem comment: hgb 9.8; recheck in AM; continue gentle IVF; hopefully discharge tomorrow Status: Acute
[2024-02-24 15:00] VITALS: BP 102/57; PULSE 74; RESP 16; TEMP 36.7; O2SAT 98
--- NOTE | 2024-02-24 18:59 | PC.NURSE ---
End of shift: patient is pleasant and cooperative. Pain to right hip well managed with active ice and PRN medication. Dressing to right hip is clean, dry and intact. While ambulating to therapy room in hallway patient reported dizziness and lightheadedness upon walking. Patient sat back onto bedside, BP was rechecked when back to room and laying flat in bed, BP was low and MD notified, Therapy was postponed. Patient able to rate pain 4-5/10 PRN oxy and tylenol administered with relief. Patient ambulated hallway this evening after dinner and tolerated well.
[2024-02-24 19:43] VITALS: BP 105/49; PULSE 83; RESP 16; TEMP 36.8; O2SAT 98
[2024-02-24] MEDS: MELATONIN 3 MG TABLET PO (20:24)
[2024-02-24 23:00] VITALS: BP 100/59; PULSE 88; RESP 16; TEMP 36.8; O2SAT 97
[2024-02-25] MEDS: ACETAMINOPHEN 500 MG TABLET 1000 MG PO ×2 (00:07→05:43)
[2024-02-25] MEDS: OXYCODONE 5 MG TABLET PO ×2 (00:07→07:52)
[2024-02-25] MEDS: LACTATED RINGERS 1000 ML 1,000 ML 75 ML IV (01:25)
[2024-02-25 03:00] VITALS: BP 106/56; PULSE 75; RESP 16; TEMP 36.4; O2SAT 95
[2024-02-25 06:28] LABS: Potassium* 3.5 mmol/L (3.6-5.1); Sodium* 137 mmol/L (135-149)
[2024-02-25 06:30] LABS: Basophils Absolute Auto 0.01 K/uL (0.00-0.30); Basophils Percent Auto 0.2 % (0.0-3.0); Eosinophils Absolute Auto 0.02 K/uL (0.00-0.50); Eosinophils Percent Auto 0.3 % (0.0-7.0); Hematocrit 27.6 % (33.0-51.0); Hemoglobin* 8.9 gm/dL (12.0-16.0); Immature Granulocytes Abs Auto 0.01 K/uL (0.00-0.30); Immature Granulocytes Pct Auto 0.2 %; Lymphocytes Absolute Auto 1.39 K/uL (0.90-2.90); Mean Corpuscular HGB Conc 32 gm/dL (32-36); Mean Corpuscular Hemoglobin 31 pg (26-34); Mean Corpuscular Volume 95 fL (80-100); Neutrophils Absolute Auto 3.73 K/uL (1.7-7.0); Neutrophils Percent Auto 64.3 % (42.0-72.0); Platelet Count* 137 K/uL (140-440); RDW Coefficient of Variation % 15.4 % (11.5-15.5); Red Blood Count 2.92 m/uL (4.00-5.20)
[2024-02-25 06:31] LABS: Creatinine* 0.4 mg/dL (0.5-1.5); Est. Creatinine Clearance* 50.37; Estimated Glomerular Filt Rate 112 ml/min
[2024-02-25 06:32] LABS: Blood Urea Nitrogen* 14 mg/dL (7-30)
[2024-02-25 06:33] LABS: Slide Review Reflex No
--- NOTE | 2024-02-25 06:38 | PC.NURSE ---
Patient A & O. VSS. Patient ambulates with SBA and gait belt. Voided x1 to the bathroom. Rates pain at about 4/10.
[2024-02-25 07:00] VITALS: BP 129/66; PULSE 96; RESP 16; TEMP 36.4; O2SAT 95
[2024-02-25] MEDS: RIVAROXABAN 10 MG TABLET PO (09:59)
[2024-02-25] MEDS: SENNOSIDES 1 TAB TABLET 2 TAB PO (09:59)
--- NOTE | 2024-02-25 11:12 | PC.NURSE ---
Discharge: patient is alert and oriented, PRN oxy for pain and premed prior to therapy, tolerating well. Patient up to BR ambulating hallway and tolerating well. BP stable, denies dizziness or lightheadedness when standing or ambulating. Voiding, passing gas, and had 2 BM's. Patient denies N/V/SOB. Using IS indep. Patient discharged today to home accompanied by spouse at 1055. Patient's IV removed intact. Discharge instructions given and signed. Patient verbalized understanding of instructions. Belongings sheet reviewed and signed by patient.
--- OUTSIDE RECORDS SUMMARY | 2024-02-29 10:16 | XMS_ITS | Clinical Summary ---
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 TEACHER Oxygen Saturation - - Inhaled Oxygen Concentration [...] through age 75 10/01/202110/01 ([facility] COVID-19 vaccine series (2022-24 season) 2023 Influenza for age 50-64 03/18/2024 Pneumococcal series for age 6-64 Aged Out No longer eligible based on patient's age to complete this topic Procedures Procedure Name Priority Date/Time Associated Diagnosis Comments DENTAL DIRECTOR THIN PREP PAP SCREEN IMAGED Routine 08/30/2017 1:30 PM 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 Case: [id number] ? Authorizing Provider: ??Amie Riddle MD ?Collected: ? 08/30/2017 1330 ? First Screen: ?Tabitha Mojica ?Received: ?08/31/2017 1355 ? Specimen: ?DENTAL DIRECTOR ThinPrep Vial Screening, Cervical/Vaginal ? 09/07/2017 8:34 AM [facility] [facility]-C ENTRAL LABORATORY INTERPRETATION/ RESULT NEGATIVE FOR INTRAEPITHELIAL LESION OR MALIGNANCY (NIL) (none) 09/07/2017 8:34 AM [facility] [employer]-C ENTRAL LABORATORY IMEN ADEQUACY Satisfactory for evaluation Endocervical cells cannot be evaluated due to severe atrophy 09/07/2017 8:34 AM VISUALLY IMPAIRED TEACHER [facility]-C ENTRAL LABORATORY HPV REQUEST HPV and PAP 09/07/2017 8:34 AM [facility] ENTRVT LABORATORY Date of LMP 09/07/2017 8:34 AM [facility] LABORATORY Comment:May 2012 Last Pap Date 04/07/2015 09/07/2017 8:34 AM [facility] Last Pap Result NIL 8 8:34 AM [facility] Menstrual Status 09/07/2017 8:34 AM [facility] EN[facility] LABORATORY Comment:Menopause Additional Information atophic cervix 09/07/2017 8:34 AM [facility] Automated Review Successful 09/07/2017 8:34 AM [facility] Comment:Specimen processed s uccessfully by automated java j2ee software engineer device, LumatixPrep Imaging System, [employer] ANCILLARY TESTING DENTAL DIRECTOR HPV Ordered, Please see separate report 09/07/2017 8:34 AM [facility] Note The pap test is a screening technique, not a diagnostic procedure. ??It is used primarily to screen for squamous cancers and precursor lesions. ??Published studies have shown that it is subject to both false negative and false positive results. ??The pap test should not be used as the sole means to diagnose or exclude pre-malignant and malignant lesions. Interpreted at [facility] (Central Lab, [facility], [facility], [facility], [facility], [facility], [facility]) 09/07/2017 8:34 AM [facility] Other (Cervical/Vagina l) 08/30/2017 1:30 PM VISUALLY IMPAIRED TEACHER 08/31/2017 1:55 PM VISUALLY IMPAIRED TEACHER Amie Riddle MD PATHOLOGY/CYTOLOGY [facility] [address] [place] [address], * SCAN-MAMMOGRAPHY REPORT (02/15/2012 12:00 PM CDT) Anatomical Region Laterality Modality Other Narrative Transcriptions Scanner - 02/15/2012 12:00 PM CDT Scanner OTHER * LIPID (01/15/2010 7:52 AM CDT) CHOLESTEROL,TOTAL 142 110 - 199 mg/dL [facility] TRIGLYCERIDES 33 <150 mg/dL [facility] HDL CHOLESTEROL 70 >40 mg/dL [facility] CHOL/HDL RATIO 2.03 <4.51 [facility] LDL CHOLESTEROL 65 <131 mg/dL [facility] PATIENT STATUS Fasting [facility] Blood specimen (specimen) BLOOD SPECIMEN / Unknown 01/15/2010 7:52 AM CDT 01/15/2010 7:48 AM CDT Kelly Kraft METER RECORD CLERK CHEMISTRY [facility] [address] [place] [address] from Last 3 Months or Most Recently Relevant to Health Maintenance Care Teams Grinder Outside Diameter Relationship Specialty Start Date End Date Amie Riddle MD PCP - General Internal Medicine 01/30/13
== END 2024-02-25 10:55 | disposition home or self-care (01) | DRG 301 ==
LOC: OR 14:20 → MEDSURG 02-25 08:22
PROVIDERS: Hospitalist; Admitting Provider Orthopaedic Surgery; PCP Internal Medicine; Visit Provider Orthopaedic Surgery
PROC: 0SR904Z Replacement of Right Hip Joint with Ceramic on Polyethylene Synthetic Substitute, Open Approach (ICD-10-PCS; CPT 27130; principal; 2024-02-23 11:45)
DX: M16.11 Unilateral primary osteoarthritis, right hip (principal); G89.18 Other acute postprocedural pain; D62 Acute posthemorrhagic anemia; F41.9 Anxiety disorder, unspecified
CPT/HCPCS: 01214; 36415; 64450; 73501; 76000; 76942; 82565; 84132; 84295; 84520; 85018; 85025; 86850; 86900; 86901; 97110; 97116; 97161; 97165; 97530; 97535; A9270; C1776; J0690; J1100; J1170; J2371; J2405; J2704; J2795; J3010; J7120

== ENCOUNTER 2024-04-16 10:19 | Outpatient (CLI) | payer BC, SELFPAY ==
--- NOTE | 2024-04-16 10:15 | CRLHL7_ITS ---
For Patients: As a result of the Century Cures Act, medical imaging exams and procedure reports are released immediately into your electronic medical record. You may view this report before your referring provider. If you have questions, please contact your health care provider. BILATERAL SCREENING MAMMOGRAM WITH COMPUTER-AIDED DETECTION AND TOMOSYNTHESIS TECHNIQUE: CC and MLO views were obtained. These mammographic images have been obtained using full-field digital technique. These mammographic images were interpreted with the benefit of computer-aided detection. Breast Tomosynthesis was used in this interpretation. COMPARISON FILM: 02/24/22, 02/23/21, 01/29/20. FINDINGS: There are scattered areas of fibroglandular density. IMPRESSION: There is no radiographic evidence for malignancy. ASSESSMENT: BI-RADS Category 1: Negative RECOMMENDATION: Routine screening mammogram in 1 year. A lay language report of this examination will be provided to the patient. Julio Hendrix M.D. Diagnostic Radiologist [email or web address] SP/Dictated by: Julio Hendrix MD @ 04/16/2024 11:33:00 AM (Electronically Signed)
--- OUTSIDE RECORDS SUMMARY | 2024-04-16 10:21 | XMS_ITS | Clinical Summary ---
Author Organization [email or web address] [facility] & [employer] [facility] Address [place], [place] [address] Care Team Providers Care Head Up Operator Name Role Phone Amie Riddle MD Primary Care Provider [phone]- [phone] Allergies No known active allergies Medications Medication [...] T Respiratory Rate 14 07/01/2010 3:50 PM PAYROLL ACCOUNTING SPECIALIST Oxygen Saturation - - Inhaled Oxygen Concentration [...] through age 76 10/01/202110/01 [facility] COVID-19 vaccine series (2022- season) 2024 Influenza for age 50-64 03/18/2024 Pneumococcal series for age 6-64 Aged Out No longer eligible based on patient's age to complete this topic Procedures Procedure Name Priority Date/Time Associated Diagnosis Comments RESTORATION ECOLOGIST THIN PREP PAP SCREEN IMAGED Routine 08/30/2017 1:30 PM PAYROLL ACCOUNTING SPECIALIST SCAN-MAMMOGRAPHY REPORT 02/15/2012 12:00 PM CDT LIPID PANEL Routine 01/15/2010 7:52 AM CDT Lipid screening from Last 3 Months or Most Recently Relevant to Health Maintenance Results * RESTORATION ECOLOGIST THIN PREP PAP SCREEN IMAGED (08/30/2017 1:30 PM PAYROLL ACCOUNTING SPECIALIST) Case Report Gynecologic Cytology Report ? Case: [id number] ? Authorizing Provider: ??Amie Riddle MD ?Collected: ? 08/30/2017 1330 ? First Screen: ?Tabitha Mojica ?Received: ?08/31/2017 1355 ? Specimen: ?RESTORATION ECOLOGIST ThinPrep Vial Screening, Cervical/Vaginal ? 09/07/2017 8:34 AM [facility] [employer] LABORATORY-C ENTRAL LABORATORY INTERPRETATION/ RESULT NEGATIVE FOR INTRAEPITHELIAL LESION OR MALIGNANCY (NIL) (none) 09/07/2017 8:34 AM [facility] [employer]-C ENTRAL LABORATORY IMEN ADEQUACY Satisfactory for evaluation Endocervical cells cannot be evaluated due to severe atrophy 09/07/2017 8:34 AM PAYROLL ACCOUNTING SPECIALIST [facility]-C ENTRAL LABORATORY HPV REQUEST HPV and PAP 09/07/2017 8:34 AM [facility] ENTROK LABORATORY Date of LMP 09/07/2017 8:34 AM [facility]OK LABORATORY Comment:May 2012 Last Pap Date 04/07/2015 09/07/2017 8:34 AM [facility] Last Pap Result NIL 8 8:34 AM [facility] Menstrual Status 09/07/2017 8:34 AM [facility]OK [facility]OR[facility] Comment:Menopause Additional Information atophic cervix 09/07/2017 8:34 AM [facility] Automated Review Successful 09/07/2017 8:34 AM [facility] Comment:Specimen processed s uccessfully by automated biofuels research scientist device, Operating AnalyticsPrep Imaging System, [employer] ANCILLARY TESTING RESTORATION ECOLOGIST HPV Ordered, Please see separate report 09/07/2017 8:34 AM [facility] Note The pap test is a screening technique, not a diagnostic procedure. ??It is used primarily to screen for squamous cancers and precursor lesions. ??Published studies have shown that it is subject to both false negative and false positive results. ??The pap test should not be used as the sole means to diagnose or exclude pre-malignant and malignant lesions. Interpreted at [facility] (Central Lab, [facility], [facility], [facility], [facility], [facility], [facility]) 09/07/2017 8:34 AM [facility] Other (Cervical/Vagina l) 08/30/2017 1:30 PM PAYROLL ACCOUNTING SPECIALIST 08/31/2017 1:55 PM PAYROLL ACCOUNTING SPECIALIST Amie Riddle MD PATHOLOGY/CYTOLOGY [facility] [address] [place] [address], * SCAN-MAMMOGRAPHY REPORT (02/15/2012 12:00 PM CDT) Anatomical Region Laterality Modality Other Narrative Transcriptions Scanner - 02/15/2012 12:00 PM CDT Scanner OTHER * LIPID (01/15/2010 7:52 AM CDT) CHOLESTEROL,TOTAL 142 110 - 199 mg/dL [facility] TRIGLYCERIDES 33 <150 mg/dL [facility] HDL CHOLESTEROL 70 >40 mg/dL [facility] CHOL/HDL RATIO 2.03 <4.51 [facility] LDL CHOLESTEROL 65 <131 mg/dL [facility] PATIENT STATUS Fasting [facility] Blood specimen (specimen) BLOOD SPECIMEN / Unknown 01/15/2010 7:52 AM CDT 01/15/2010 7:48 AM CDT Kelly Kraft ALUMNAE SECRETARY CHEMISTRY [facility] [address] [place] [address] from Last 3 Months or Most Recently Relevant to Health Maintenance Care Teams Head Up Operator Relationship Specialty Start Date End Date Amie Riddle MD PCP - General Internal Medicine 01/30/13
== END 2024-04-16 10:20 | disposition home or self-care (01) ==
LOC: MAMMO 10:19
PROVIDERS: PCP Internal Medicine; Visit Provider Internal Medicine
DX: Z12.31 Encounter for screening mammogram for malignant neoplasm of breast (principal)
CPT/HCPCS: 77063; 77067

== ENCOUNTER 2024-06-06 15:15 | Outpatient (RCR) | payer BC, SELFPAY ==
--- NOTE | 2024-02-02 17:24 | PT.OPEX ---
PT [place] Outpatient Eval PT [facility] Outpatient Eval Start: 02/01/24 12:01 Freq: Status: Active Protocol: Document 02/02/24 10:44 MLS (Rec: 02/02/24 17:23 MLS [id number]) E-signed By Madelaine Garcia DPT Physical Therapy Outpatient Evaluation Insurance Information Recert Due Date 05/01/24 Insurance Name Medicare B,Blue Cross/Blue Shield Medical Diagnosis M16.11 Unilateral OA of right hip Z96.641 presence of right artificial hip s/p right WENDY on 02/23/24 Treating Diagnosis s/p right WENDY on 02/23/[address] Polo Subjective Subjective Patient is a 63 year old female who presents to physical therapy for her pre- op appointment prior to her right WENDY on 02/23/24. She has had hip pain for a couple of years. She has tried PT, activity modifications and injection without relief of symptoms. She is noticing that she is not walking as much because of the pain. She used to walk for 60 minutes at a time. She can use her e-bike with some soreness after she is done. The pain has also been waking her in the evenings at night. Significant past medical history includes previous broken pelvis unknown when this happened (possibly while giving ) but just discovered on xray yesterday. Pain Comments Today: 5/10 on a 0-10 pain scale with 10 = extreme pain At its worst: 10/10 At its best: 5/10 Current Work Status Retired Precautions Weight Bearing Status Full Weight Bearing Objective Other/Pertinent Objective KNEE ROM Grossly tested WNL B HIP ROM Left: Grossly tested WNL Right: Flexion: 95 Internal Rotation: 10 External Rotation: 30 Abduction: 40 LLE MMT: Hip flexion: R 4+/5 L 4+/5 Hip abduction: R 4/5 L 4/5 Hip extension: R 4/5 L 4/5 Knee flexion: R 4+/5 L 4+/5 Knee extension: R 4+/5 L 4+/5 TX: Reviewed/demonstrated on frequency to perform HEP post operatively including: long sitting quad set ankle pumps supine glute sets supine hamstring sets supine heel slide standing hip abd with UE support sit to stand Extensive discussion and education on what to expect post operatively. Time was spent discussing home modifications, Assistive devices, pain control, fall prevention, hospital stay time line, and assist needed for activities post surgically. Pt questions were answered and demonstrated understanding. Assessment Assessment/Impression Pt is a 63 year old female who presents for her pre-op appointment prior to her right WENDY on 02/23/24. Patient also has notable objective findings including limited ROM, tenderness to palpation, and decreased strength which are also likely contributing to the problem. Patient is a good candidate for skilled therapy to target deficits described above. Skilled PT intervention is necessary for use of therapeutic exercise manual therapy, neuromuscular re- education, gait training, and therapeutic activity. Functional impairments include difficulty with: standing, sleeping, walking, exercising and ADLs. See appropriate sections of PT eval for complete list of goals and POC . D/C plan and criteria is for pt to achieve the goals as listed below or until max rehab potential is met. Pt was agreeable with plan of care and goals established. Primary Functional Limitations standing walking exercising ADLs sleeping Plan of Care Rehabilitation Potential Good Physical Therapy Goals STG: (prior to surgery) !. Pt will demonstrate independence in performance of home exercise program with the use of video and/or handouts in order to optimize functional mobility and reduce risk for re-injury. LTG: (post surgery within 10- 12 weeks) 1) Pt will be indep with HEP for mcfp management of pain/symptoms 2) Pt will improve hip AROM at least 0-90* for improved sit to stand transfers 3) Patient will ascend/descend at least 14 steps using single rail and reciprocal pattern to improve ease of mobility at home/community to get to basement. 4) Patient will ambulate at least 15 minutes with single point cane, minimal antalgic gait for improved community mobility Coordination/Communication With Referral Source Treatment Plan/Direct Interventions Manual Therapy,Neuromuscular Re-ed,Therapeutic Activities, Therapeutic Exercises Patient Will Be Discharged From Therapy Independently Progressing Evaluation Billing Untimed Code Treatment Minutes 35 Complexity Low Certification Information Provider Signature Required Yes Provider Signature Shows Agreement With POC & Medical Necessity Physician NPI Number Write NPI# Here Physician Comment/Change : Physician Signature & Date Requested Please Sign/Date Here
== END 2024-07-03 13:10 | disposition home or self-care (01) ==
PROVIDERS: PCP Internal Medicine; Visit Provider Orthopaedic Surgery
DX: M16.11 Unilateral primary osteoarthritis, right hip (principal); Z96.641 Presence of right artificial hip joint; Z51.89 Encounter for other specified aftercare
CPT/HCPCS: 97110; 97161